=== PATIENT | male | born 1970 ===

== ENCOUNTER 2023-06-05 13:39 | Observation (INO) ==
[2023-06-05 14:43] LABS: ABS Basophils 0.1 10^3/uL (0.0-0.1); ABS Eosinophils 0.1 10^3/uL (0.0-0.5); ABS Lymphocytes 2.2 10^3/uL (1.0-4.8); ABS Monocytes 1.2 10^3/uL (0.0-1.1); ABS Neutrophils 10.4 10^3/uL (1.5-7.6); ABS Nucleated RBC 0.01 10^3/ul; Eosinophil % 0.8 %; Hematocrit 43.6 % (38-53); Hemoglobin 14.6 g/dL (13.2-16.3); Lymphocyte % 15.5 %; Mean Corpuscular Hemoglobin 28.6 pg (27-33); Mean Corpuscular Hgb Conc 33.5 g/dL (31-36); Mean Corpuscular Volume 85.5 fL (80-97); Nucleated Red Blood Cells % 0.1 %/100WBC (0.0-0.8); Platelet Count 253 10^3/uL (150-450); Red Cell Distribution Width 14.2 % (12-17)
[2023-06-05] MEDS: Piperacillin/Tazobac 3.375 BAG 3.375 GM/100 ML BAG IV ONE (14:50)
[2023-06-05 14:55] LABS: Activated Partial Thrombo Time 29.3 seconds (26.0-38.0); INR 1.06 (0.83-1.13)
[2023-06-05] MEDS ORDERED: Vancomycin 1,750 MG in NS 0.9% 250 ml 250 ML IVPB SCH (15:00)
[2023-06-05 15:06] LABS: Urine Appearance Clear; Urine Bilirubin Negative (Negative); Urine Blood Trace (Negative); Urine Color Light-Yellow; Urine Glucose 4+ (>=1000 mg/dL) (Negative); Urine Ketones Negative (Negative); Urine Nitrite Negative (Negative); Urine Protein 1+ (>=30 mg/dL) (Negative); Urine Specific Gravity 1.024 (1.002-1.030); Urine Urobilinogen Negative (Negative)
[2023-06-05] MEDS: Acetaminophen IV 1 GM/100ML 1,000 MG/100 ML BAG IV ONE (15:16)
[2023-06-05] MEDS: cefTRIAXone 2 gm/50 mL D5W 2 GM/50 ML BAG IV ONE (15:16)
[2023-06-05] MEDS: Ondansetron 4 mg VIAL 2 MG/ML 2 ml VIAL IV ONE (15:18)
[2023-06-05 15:20] LABS: Albumin/Globulin Ratio 0.9 (1-3); C Reactive Protein 123.94 mg/L (<8.01); Calcium 9.5 mg/dL (8.6-10.3); Creatinine, Serum 1.71 mg/dL (0.67-1.17); Globulin 4.7 g/dL (2-4); Potassium 3.8 mmol/L (3.5-5.0); Total Bilirubin 0.6 mg/dL (0.2-1.0); Total Protein 8.7 g/dL (6.4-8.9)
[2023-06-05] MEDS: NORMOSOL R PH IV ONE (15:21)
[2023-06-05 15:30] LABS: Urine Bacteria Absent /HPF (Absent); Urine Red Blood Cell 1+(3-5/hpf) /HPF (0-Trace); Urine White Blood Cell Trace(0-5/hpf) /HPF (0-Trace)
[2023-06-05] MEDS: Vancomycin 1,750 MG in NS 0.9% 500 ml BAG 500 ML IVPB ONE (16:45)
[2023-06-05] MEDS: Iohexol 300 (CONTRAST) 10 ML SDV IV ONE (17:29)
[2023-06-05] MEDS ORDERED: Vancomycin per Pharmacy 1 EA NOTE FOLLOW UP SCH (21:00)
[2023-06-05] MEDS ORDERED: Dextrose 50% Syringe 50 ml 25 GM/50 ML SYRINGE IV PUSH PRN (21:06)
[2023-06-05] MEDS ORDERED: Albuterol HFA INHALER 8 gm MDI INH PRN (21:19)
[2023-06-05] MEDS: Lidocaine 1% VIAL 10 MG/ML 30 ML VIAL INJ ONE (21:53)
[2023-06-05] MEDS: Lactated Ringers 1000 ml BAG 1,000 ML IV SCH (22:01)
[2023-06-05] MEDS: Ondansetron 4 mg VIAL 2 MG/ML 2 ml VIAL IV PRN (22:01)
[2023-06-05] MEDS: Heparin 5000 UNITS/ML 1 mL VIAL SUBCUT SCH (23:06)
[2023-06-06] MEDS: Cefepime 2 GM in Dextrose 2 GM/50 ML BAG IV SCH ×2 (08:17→16:36)
[2023-06-06 08:21] LABS: ABS Basophils 0.1 10^3/uL (0.0-0.1); ABS Eosinophils 0.2 10^3/uL (0.0-0.5); ABS Lymphocytes 2.1 10^3/uL (1.0-4.8); ABS Monocytes 0.9 10^3/uL (0.0-1.1); ABS Neutrophils 7.5 10^3/uL (1.5-7.6); Eosinophil % 1.4 %; Hematocrit 32.7 % (38-53); Hemoglobin 10.8 g/dL (13.2-16.3); Lymphocyte % 19.8 %; Mean Corpuscular Hemoglobin 28.7 pg (27-33); Mean Corpuscular Hgb Conc 33.1 g/dL (31-36); Mean Corpuscular Volume 86.8 fL (80-97); Mean Platelet Volume 8.5 fL (7.5-11.2); Platelet Count 174 10^3/uL (150-450); Red Blood Count 3.77 10^6/uL (4.06-5.63); Red Cell Distribution Width 14.1 % (12-17); White Blood Count 10.8 10^3/uL (3.6-10.2)
[2023-06-06 09:27] LABS: Calcium 4.4 mg/dL (8.6-10.3); Creatinine, Serum 0.77 mg/dL (0.67-1.17); Potassium 2.3 mmol/L (3.5-5.0); eGFR CKD-EPI 106.4 (>60)
[2023-06-06 11:54] LABS: ALT 24 U/L (7-52); Albumin 3.2 g/dL (3.2-5.2); Albumin/Globulin Ratio 0.8 (1-3); Alkaline Phosphatase 67 U/L (35-149); Anion Gap 8 mmol/L (2-16); Blood Urea Nitrogen 19 mg/dL (6-24); CO2 Carbon Dioxide 27 mmol/L (22-32); Calcium 8.2 mg/dL (8.6-10.3); Chloride 99 mmol/L (101-111); Creatinine, Serum 1.48 mg/dL (0.67-1.17); Glucose 144 mg/dL (70-100); Sodium 134 mmol/L (135-145); Total Bilirubin 0.4 mg/dL (0.2-1.0); Total Protein 7.2 g/dL (6.4-8.9); eGFR CKD-EPI 55.9 (>60)
[2023-06-06] MEDS: Insulin GLARGINE 100 un/ml 10 ml VIAL SUBCUT SCH (13:00)
[2023-06-06] MEDS ORDERED: Vancomycin 1,750 MG in NS 0.9% 500 ml BAG 500 ML IVPB SCH (16:00)
[2023-06-06] MEDS: Mometasone 220 MCG MDI INH SCH (20:02)
[2023-06-07 07:21] LABS: ABS Eosinophils 0.2 10^3/uL (0.0-0.5); ABS Lymphocytes 2.3 10^3/uL (1.0-4.8); ABS Monocytes 0.9 10^3/uL (0.0-1.1); ABS Neutrophils 6.2 10^3/uL (1.5-7.6); ABS Nucleated RBC 0.01 10^3/ul; Eosinophil % 1.8 %; Hematocrit 38.1 % (38-53); Hemoglobin 12.8 g/dL (13.2-16.3); Lymphocyte % 24.3 %; Mean Corpuscular Hemoglobin 28.9 pg (27-33); Mean Corpuscular Hgb Conc 33.5 g/dL (31-36); Mean Corpuscular Volume 86.2 fL (80-97); Mean Platelet Volume 8.8 fL (7.5-11.2); Nucleated Red Blood Cells % 0.1 %/100WBC (0.0-0.8); Platelet Count 203 10^3/uL (150-450); Red Blood Count 4.42 10^6/uL (4.06-5.63); Red Cell Distribution Width 13.8 % (12-17); White Blood Count 9.7 10^3/uL (3.6-10.2)
[2023-06-07 07:44] LABS: Calcium 8.5 mg/dL (8.6-10.3); Creatinine, Serum 1.4 mg/dL (0.67-1.17); Potassium 4.3 mmol/L (3.5-5.0); eGFR CKD-EPI 59.7 (>60)
[2023-06-08 06:23] LABS: ABS Basophils 0.1 10^3/uL (0.0-0.1); ABS Eosinophils 0.2 10^3/uL (0.0-0.5); ABS Lymphocytes 2.5 10^3/uL (1.0-4.8); ABS Monocytes 0.8 10^3/uL (0.0-1.1); ABS Neutrophils 5.6 10^3/uL (1.5-7.6); Eosinophil % 1.9 %; Hematocrit 37.5 % (38-53); Hemoglobin 12.6 g/dL (13.2-16.3); Lymphocyte % 26.9 %; Mean Corpuscular Hemoglobin 28.7 pg (27-33); Mean Corpuscular Hgb Conc 33.7 g/dL (31-36); Mean Corpuscular Volume 85.1 fL (80-97); Mean Platelet Volume 8.5 fL (7.5-11.2); Platelet Count 246 10^3/uL (150-450); Red Blood Count 4.41 10^6/uL (4.06-5.63); White Blood Count 9.1 10^3/uL (3.6-10.2)
[2023-06-08 07:21] LABS: Calcium 8.6 mg/dL (8.6-10.3); Creatinine, Serum 1.24 mg/dL (0.67-1.17); Potassium 4.2 mmol/L (3.5-5.0); eGFR CKD-EPI 69.1 (>60)
[2023-06-08 10:23] VITALS: BP 144/90
[2023-06-08] MEDS ORDERED: Vancomycin Trough Check NOTE FOLLOW UP ONE (15:30)
== END 2023-06-08 13:45 ==
LOC: ED 13:39 → EDHOLD 13:39 → SUATTDRO 18:46 → MED 06-06 10:12
PROVIDERS: ADMIT Internal Medicine; ATTEND Student in an Organized Health Care Education/Training Program